=== PATIENT | male | born 1940 | race Caucasian/White ===

== ENCOUNTER 2016-06-28 23:00 | Inpatient (IN) | payer OTHER ==
[~2016-06-28] VITALS: Ht 172.7 cm; Wt 92.8 kg
[2016-06-28] MEDS ORDERED: SODIUM CHLORIDE 0.9% 1000ML 250 ML IV STA (23:38)
[2016-06-28] MEDS ORDERED: SODIUM CHLORIDE 0.9% 1000ML 1,000 ML IV STA (23:38)
--- NOTE | 2016-06-28 23:43 | EMERGENCY ROOM VISIT NOTE ---
History Report prepared by Gina: Bradley Maldonado Under the Supervision of: Dr. Will King M.D. First contact with patient: 23:17 Chief Complaint: CARDIAC ASSESSMENT Stated Complaint: HTN, SEVERE HEADACHE, LEG WEAKNESS Nursing Triage Summary: pt drove 8+hours from [facility] today. when pt arrived to [facility] at 1999. he became very flushed. pt layed down and checked his bp and it was elevated. pt also c/o chest pain, SOB and nausea. hx afib with ablasion 10yrs ago that resolved afib. pt hx anxiety and takes 2-3 anxiety meds daily. hx "swollen legs from fluid". recently dx with HTN and started on 2 BP meds. reports he has been taking them as prescribed. pt states his CP "pressure felt like my throat was closing up and my heart was beating irregularly". pt took dose of Hydrachlorathiazide prior to coming to ED. History of Present Illness The patient is a 76 year old male who presents to the Emergency Room for a cardiac assessment. The patient just drove to [place] from [place] for eight and a half hours. Two and a half hours ago, the patient was eating dinner with his family. He bent over to pet his cats, and when he stood back up he had a very erythematous face. He then began to have chest pain, shortness of breath, nausea, and a headache. He also feels very bloated and is slightly constipated. The patient denies any vomiting or rashes. He states that he feels better than he did when he came in secondary to lying down. He has a history of hypertension, resolved A Fib, and anxiety. The patient has not missed any of his medications. He took an extra half of one of his medications when the symptoms began. He denies any speaking difficulty or vision problems. Source of History: patient, family, spouse/significant other Onset: 2 and a half hours ago Position: other (Heart) Symptom Intensity: moderate Quality: other (Blood Pressure) Timing: waxes/wanes Modifying Factors (Relieving): rest Associated Symptoms: + SOB, + chest pain, + headache, + nausea, No vomiting Note: He denies any vision problems or speaking difficulty. He feels very bloated and is having some mild constipation. Review of Systems See HPI for pertinent positives & negatives. A total of 10 systems reviewed and were otherwise negative. Past Medical & Surgical Medical Problems: (1) A-fib (2) Anxiety (3) Chest pain (4) Hypertension (5) Hypertension Old medical records were attempted to be reviewed but there are no old records at this hospital. Nurse's notes were reviewed and I agree with. Family History Diabetes mellitus FHx: cancer Hypertension Social History Smoking Status: Former Smoker Smokeless Tobacco Use: No Alcohol Use: none Drug Use: none Marital Status: Housing Status: lives with family Occupation Status: retired Current/Historical Medications Scheduled Amlodipine (Norvasc), 7.5 MG PO DAILY Atenolol (Tenormin), 100 MG PO DAILY Cholecalciferol (Vitamin D3), 1,000 UNIT PO DAILY Gabapentin (Neurontin), 300 MG PO TID Hydrochlorothiazide (Hydrochlorothiazide), 12.5 MG PO DAILY Losartan Potassium (Cozaar), 25 MG PO HS Meloxicam (Mobic), 15 MG PO DAILY Scheduled PRN Alprazolam (Alprazolam), 0.25 MG PO TID PRN for Anxiety Allergies Coded Allergies: Latex (Verified Allergy, Unknown, skin irritation, 06/28/16) Physical Exam Vital Signs Date Time Temp Pulse Resp B/P Pulse Ox O2 Delivery O2 Flow Rate FiO2 06/29/16 03:07 52 06/29/16 02:35 49 16 131/63 94 Room Air 06/29/16 01:47 50 16 150/74 93 Room Air 06/29/16 00:45 50 14 146/79 95 Room Air 06/28/16 23:18 55 17 176/85 99 Room Air 06/28/16 23:11 57 06/28/16 23:08 99 Room Air 06/28/16 23:08 99 Room Air 06/28/16 23:02 36.3 67 20 200/92 92 Room Air Physical Exam Final General: Non ill appearing older male. Awake, alert, and oriented x3. Well developed well nourished in no acute distress, breathing comfortably on room air. Normal speech. Answers questions appropriately. HEENT: Normal cephalic atraumatic. Pupils are equal round and reactive to light. Extraocular movements are intact. Oropharynx is pink with moist mucous membranes. No swelling of the mouth lips or tongue. Neck: Supple with a midline trachea. No meningeal signs or stiffness, no JVD or bruits. No Stridor. Chest: Clear to auscultation bilaterally. No wheezes or rhonchi. No increased work of breathing. Heart: regular rate and rhythm. Abdomen: Soft nontender, nondistended without rebound guarding or rigidity. Extremities: No cyanosis clubbing or edema. No calf tenderness or assymetry Spine/Back. Non tender to palpation. No CVA tenderness Skin: Face is slightly flushed. No hives. Neurologic exam: Cranial nerves two through 12 are intact. Motor and sensation are intact and symmetrical throughout. Normal finger to nose. No tremor. Medical Decision & Procedures ER Provider Diagnostic Interpretation: Radiology results as stated below per my review and radiologist interpretation: CT HEAD: No intracranial hemorrhage or mass effect. Radiologist: Joey Carl M.D Chest x-ray per my interpretation reveals no pneumothorax, failure, or infiltrate. Laboratory Results 06/28/16 23:10 Red Blood Count 5.37, Mean Corpuscular Volume 84.5, Mean Corpuscular Hemoglobin 29.8, Mean Corpuscular Hemoglobin Concent 35.2, Mean Platelet Volume 10.4, Neutrophils (%) (Auto) 66.4, Lymphocytes (%) (Auto) 19.0, Monocytes (%) (Auto) 10.2, Eosinophils (%) (Auto) 3.2, Basophils (%) (Auto) 0.8, Neutrophils # (Auto ) 6.93, Lymphocytes # (Auto) 1.98, Monocytes # (Auto) 1.06, Eosinophils # (Auto ) 0.33, Basophils # (Auto) 0.08 06/28/16 23:10 Test 06/28/16 23:10 06/28/16 23:47 06/28/16 23:55 White Blood Count 10.42 K/uL (4.8-10.8) Red Blood Count 5.37 M/uL (4.7-6.1) Hemoglobin 16.0 g/dL (14.0-18.0) Hematocrit 45.4 % (42-52) Mean Corpuscular Volume 84.5 fL (80-100) Mean Corpuscular Hemoglobin 29.8 pg (25-34) Mean Corpuscular Hemoglobin Concent 35.2 g/dl (32-36) Platelet Count 172 K/uL (130-400) Mean Platelet Volume 10.4 fL (7.4-10.4) Neutrophils (%) (Auto) 66.4 % Lymphocytes (%) (Auto) 19.0 % Monocytes (%) (Auto) 10.2 % Eosinophils (%) (Auto) 3.2 % Basophils (%) (Auto) 0.8 % Neutrophils # (Auto) 6.93 K/uL (1.4-6.5) Lymphocytes # (Auto) 1.98 K/uL (1.2-3.4) Monocytes # (Auto) 1.06 K/uL (0.11-0.59) Eosinophils # (Auto) 0.33 K/uL (0-0.5) Basophils # (Auto) 0.08 K/uL (0-0.2) RDW Standard Deviation 38.9 fL (36.4-46.3) RDW Coefficient of Variation 12.8 % (11.5-14.5) Immature Granulocyte % (Auto) 0.4 % Immature Granulocyte # (Auto) 0.04 K/uL (0.00-0.02) Prothrombin Time 10.7 SECONDS (9.0-12.0) Prothromb Time International Ratio 1.0 (0.9-1.1) Activated Partial Thromboplast Time 30.3 SECONDS (21.0-31.0) Partial Thromboplastin Ratio 1.2 Anion Gap 6.0 mmol/L (3-11) Est Creatinine Clear Calc Drug Dose 45.6 ml/min Estimated GFR () 51.3 Estimated GFR (Non- 44.3 BUN/Creatinine Ratio 15.3 (10-20) Calcium Level 9.1 mg/dl (8.5-10.1) Total Bilirubin 0.5 mg/dl (0.2-1) Direct Bilirubin 0.1 mg/dl (0-0.2) Aspartate Amino Transf (AST/SGOT) 26 U/L (15-37) Alanine Aminotransferase (ALT/SGPT) 41 U/L (12-78) Alkaline Phosphatase 108 U/L (45-117) Total Creatine Kinase 163 U/L (39-308) Creatine Kinase MB 4.8 ng/ml (0.5-3.6) Creatine Kinase MB Ratio 2.9 (0-3.0) Total Protein 7.7 gm/dl (6.4-8.2) Albumin 4.0 gm/dl (3.4-5.0) Lipase 312 U/L (73-393) Bedside Troponin I 0.000 ng/ml (0-0.045) Urine Color YELLOW Urine Appearance CLEAR (CLEAR) Urine pH 8.5 (4.5-7.5) Urine Specific [place] 1.010 (1.000-1.030) Urine Protein NEG (NEG) Urine Glucose (UA) NEG (NEG) Urine Ketones NEG (NEG) Urine Occult Blood NEG (NEG) Urine Nitrite NEG (NEG) Urine Bilirubin NEG (NEG) Urine Urobilinogen NEG (NEG) Urine Leukocyte Esterase NEG (NEG) Laboratory studies as stated above per my review. Medications Administered Medications (Trade) Dose Ordered Sig/Tirso Route Start Time Stop Time Status Last Admin Dose Admin Sodium Chloride 250 ml @ 999 mls/hr Q16M STAT IV 06/28/16 23:38 06/28/16 23:53 DC 06/29/16 00:45 999 MLS/HR Sodium Chloride (Nss 1000ml) 1,000 ml @ 100 mls/hr Q10H STAT IV 06/28/16 23:38 06/29/16 04:11 DC 06/29/16 00:45 100 MLS/HR ECG Indication: chest pain Rate (beats per minute): 57 Rhythm: sinus bradycardia Findings: no acute ischemic change, no ectopy Comparison ECG Date: no prior available ED Course 2317: Past medical records reviewed. The patient was evaluated in room B6, and a complete history and physical examination were performed. 2338: Sodium Chloride 1000 ml @ 100 mls/hr IV, Sodium Chloride 250 ml @ 999 mls/ hr IV 0005: The patient seems comfortable. He is going to CT. 0058: The patient is still resting comfortably. His systolic blood pressure has decreased to 146. 0322: Upon reevaluation, the patient is resting. I discussed the results and treatment plan with the patient. He verbalized agreement of the treatment plan. The patient will be evaluated by Dr. Gutiérrez - [facility], for further management. His systolic blood pressure is 131. Medical Decision Differentials include hypertensive urgency, acute coronary syndrome, CVA, infection, and electrolyte or metabolic abnormality. This patient comes in as described above He had chest pain and high blood pressure as well as a headache. His blood pressure did come down without treatment in the ER. He did take an extra half dose of his calcium channel jesi prior to arrival. His EKG does not suggest acute coronary syndrome or arrhythmia. He has a normal neurologic exam .CAT scan his has unremarkable .chest x-ray does not suggest congestive heart failure, pneumonia, or pneumothorax. He has no acute electrolyte or metabolic abnormalities. He was reassessed frequently and is feeling better. Given the fact, he had chest pain shortness breath and high blood pressure. I do think he needs to be observed in the hospital to rule out acute cardiac event. I did consult the hospitalist. This on the ER will admit him for these measures. Consults Time Called: [phone] Consulting Physician: Dr. Gutiérrez - [facility] Returned Call: [phone] They will be evaluating the patient for further management. Impression Primary Impression: Precordial chest pain Additional Impressions: HTN (hypertension) Headache Scribe Attestation The scribe's documentation has been prepared under my direction and personally reviewed by me in its entirety. I confirm that the note above accurately reflects all work, treatment, procedures, and medical decision making performed by me. Departure Information Dispostion Being Evaluated By Hospitalist Referrals No Doctor, Assigned (PCP) Patient Instructions My [facility] Problem Qualifiers
[2016-06-29 00:22] LABS: URINE APPEARANCE CLEAR (CLEAR); URINE BILIRUBIN NEG (NEG); URINE COLOR YELLOW; URINE NITRITE NEG (NEG); URINE PH 8.5 (4.5-7.5); UROBILINOGEN NEG (NEG)
[2016-06-29] MEDS ORDERED: AMLO-110 PO (00:24)
[2016-06-29] MEDS ORDERED: MELO15TA4 PO (00:24)
[2016-06-29] MEDS ORDERED: LOSA25TA18 PO (00:24)
[2016-06-29] MEDS ORDERED: CHOL1000 PO (00:25)
[2016-06-29] MEDS ORDERED: XNX25X PO (00:27)
[2016-06-29] MEDS ORDERED: HYDR12.55 PO (00:27)
[2016-06-29] MEDS ORDERED: GABA-113 PO (00:27)
[2016-06-29] MEDS ORDERED: ATEN-175 PO (00:27)
[2016-06-29 00:33] LABS: REVIEW REQ? NO
[2016-06-29 00:34] LABS: MANUAL MICROSCOPIC REQUIRED? NO
[2016-06-29 01:02] LABS: BASO % 0.8 %; BASO ABS # 0.08 K/uL (0-0.2); COMPLETE YES; EOS % 3.2 %; HEMATOCRIT 45.4 % (42-52); IG% 0.4 %; LYMPH ABS # 1.98 K/uL (1.2-3.4); MEAN CELL VOLUME 84.5 fL (80-100); MEAN CORPUSCULAR HEMOGLOBIN 29.8 pg (25-34); MEAN CORPUSCULAR HGB CONC 35.2 g/dl (32-36); MEAN PLATELET VOLUME 10.4 fL (7.4-10.4); MONO % 10.2 %; NEUT % 66.4 %; PLATELET COUNT 172 K/uL (130-400); RED BLOOD COUNT 5.37 M/uL (4.7-6.1); WHITE BLOOD COUNT 10.42 K/uL (4.8-10.8)
[2016-06-29 01:03] LABS: PARTIAL THROMBOPLASTIN RATIO 1.2; PROTHROMBIN TIME (PATIENT) 10.7 SECONDS (9.0-12.0)
[2016-06-29 01:06] LABS: BUN/CREATININE RATIO 15.3 (10-20); CALCIUM 9.1 mg/dl (8.5-10.1); CREATININE 1.5 mg/dl (0.60-1.40); POTASSIUM 3.9 mmol/L (3.5-5.1)
[2016-06-29 01:11] LABS: CKMB/CK RATIO 2.9 (0-3.0)
[2016-06-29] MEDS ORDERED: MAGNESIUM HYDROXIDE SUSP 30 ML UDC PO PRN (03:30)
[2016-06-29] MEDS ORDERED: MoRPHine SULFATE 2 MG/ML CARP IV PRN (03:30)
[2016-06-29] MEDS ORDERED: ZOLPIDEM TARTRATE 5 MG TAB PO PRN (03:30)
[2016-06-29] MEDS ORDERED: ACETAMINOPHEN 325 MG TAB PO PRN (03:30)
[2016-06-29] MEDS ORDERED: ALUMINUM/MAGNESIUM/SIMETH (MAALOX MAX) 30 ML UDC PO PRN (03:30)
[2016-06-29] MEDS ORDERED: NITROGLYCERIN 0.4 MG SL PER TAB CHARGE SL PRN (03:30)
[2016-06-29] MEDS ORDERED: ONDANSETRON INJ 2 MG/ML 2 ML VIAL IV PRN (03:30)
[2016-06-29] MEDS ORDERED: ALPRAZOLAM 0.25 MG TAB PO PRN (03:30)
[2016-06-29] MEDS ORDERED: POLYETHYLENE (MIRALAX) 17 GM PACK PO PRN (03:30)
--- NOTE | 2016-06-29 03:32 | History and Physical ---
History & Physical Date & Time of Service: Jun 29, 2016 at 03:25 Chief Complaint: Htn, Severe Headache, Leg Weakness Primary Care Physician: No Doctor, Assigned History of Present Illness Source: patient, spouse Mr Miller is a 76 yo M from [place], [place], who was visiting his daughter in [place] with his . He was downstairs last night playing with his daughters cats and started to feel winded and shrot of breath. He felt his BP may be up, and his face was flushed and red. He checked his BP and it was 190 systolic. he called his PCP who said to take another 1/2 tablet of amlodipine. He did not feel any better so came to the ED. He also had a left sided chest discomfort. This was sharp, nonradiating, and did no tget better with sitting up or laying down. He denied nausea or vomiting. He has a history of cardiac ablation about 10 years ago for atrial fibrillation. He has a history of HTN and is on 4 different medications for this (losartan 25mg, amlodipine 7.5mg daily, atenolol 100mg BID, and HCTZ 25mg). He reports his BP has always been difficult to control. Past Medical/Surgical History Medical Problems: (1) A-fib Status: Resolved (2) Anxiety Status: Chronic (3) Hypertension Status: Chronic Family History Diabetes mellitus FHx: cancer Hypertension Social History Smoking Status: Former Smoker (Stopped at age 23) Smokeless Tobacco Use: No Drug Use: none Marital Status: Occupational Status: retired Allergies Coded Allergies: Latex (Verified Allergy, Unknown, skin irritation, 06/28/16) Home Medications Scheduled Amlodipine (Norvasc), 7.5 MG PO DAILY Atenolol (Tenormin), 100 MG PO DAILY Cholecalciferol (Vitamin D3), 1,000 UNIT PO DAILY Gabapentin (Neurontin), 300 MG PO TID Hydrochlorothiazide (Hydrochlorothiazide), 12.5 MG PO DAILY Losartan Potassium (Cozaar), 25 MG PO HS Meloxicam (Mobic), 15 MG PO DAILY Scheduled PRN Alprazolam (Alprazolam), 0.25 MG PO TID PRN for Anxiety Review of Systems See HPI for pertinent positives & negatives. A total of 10 systems reviewed and were otherwise negative. Physical Exam Vital Signs Date Time Temp Pulse Resp B/P Pulse Ox O2 Delivery O2 Flow Rate FiO2 06/29/16 03:07 52 06/29/16 02:35 49 16 131/63 94 Room Air 06/29/16 01:47 50 16 150/74 93 Room Air 06/29/16 00:45 50 14 146/79 95 Room Air 06/28/16 23:18 55 17 176/85 99 Room Air 06/28/16 23:11 57 06/28/16 23:08 99 Room Air 06/28/16 23:08 99 Room Air 06/28/16 23:02 36.3 67 20 200/92 92 Room Air General Appearance: WD/WN, no apparent distress, + obese Head: normocephalic, atraumatic Eyes: normal inspection, PERRL ENT: TMs normal Neck: supple, no JVD Respiratory/Chest: lungs clear, normal breath sounds, no respiratory distress Cardiovascular: regular rate, rhythm, no murmur, normal peripheral pulses Abdomen/GI: normal bowel sounds, non tender, soft Extremities/Musculoskelatal: no calf tenderness, no pedal edema Neurologic/Psych: alert, normal reflexes, oriented x 3, + pertinent finding ( anxious, rapid speech) Skin: no rash Lymphatic: no adenopathy Diagnostics Laboratory Results Results Past 24 Hours Test 06/28/16 23:10 06/28/16 23:47 06/28/16 23:55 06/29/16 03:18 Range/Units White Blood Count 10.42 4.8-10.8 K/uL Red Blood Count 5.37 4.7-6.1 M/uL Hemoglobin 16.0 14.0-18.0 g/dL Hematocrit 45.4 42-52 % Mean Corpuscular Volume 84.5 80-100 fL Mean Corpuscular Hemoglobin 29.8 25-34 pg Mean Corpuscular Hemoglobin Concent 35.2 32-36 g/dl Platelet Count 172 130-400 K/uL Mean Platelet Volume 10.4 7.4-10.4 fL Neutrophils (%) (Auto) 66.4 % Lymphocytes (%) (Auto) 19.0 % Monocytes (%) (Auto) 10.2 % Eosinophils (%) (Auto) 3.2 % Basophils (%) (Auto) 0.8 % Neutrophils # (Auto) 6.93 1.4-6.5 K/uL Lymphocytes # (Auto) 1.98 1.2-3.4 K/uL Monocytes # (Auto) 1.06 0.11-0.59 K/uL Eosinophils # (Auto) 0.33 0-0.5 K/uL Basophils # (Auto) 0.08 0-0.2 K/uL RDW Standard Deviation 38.9 36.4-46.3 fL RDW Coefficient of Variation 12.8 11.5-14.5 % Immature Granulocyte % (Auto) 0.4 % Immature Granulocyte # (Auto) 0.04 0.00-0.02 K/uL Prothrombin Time 10.7 9.0-12.0 SECONDS Prothromb Time International Ratio 1.0 0.9-1.1 Activated Partial Thromboplast Time 30.3 21.0-31.0 SECONDS Partial Thromboplastin Ratio 1.2 Sodium Level 142 136-145 mmol/L Potassium Level 3.9 3.5-5.1 mmol/L Chloride Level 104 98-107 mmol/L Carbon Dioxide Level 32 21-32 mmol/L Anion Gap 6.0 3-11 mmol/L Blood Urea Nitrogen 23 7-18 mg/dl Creatinine 1.50 0.60-1.40 mg/dl Est Creatinine Clear Calc Drug Dose 45.6 ml/min Estimated GFR () 51.3 Estimated GFR (Non- 44.3 BUN/Creatinine Ratio 15.3 10-20 Random Glucose 100 70-99 mg/dl Calcium Level 9.1 8.5-10.1 mg/dl Total Bilirubin 0.5 0.2-1 mg/dl Direct Bilirubin 0.1 0-0.2 mg/dl Aspartate Amino Transf (AST/SGOT) 26 15-37 U/L Alanine Aminotransferase (ALT/SGPT) 41 12-78 U/L Alkaline Phosphatase 108 45-117 U/L Total Creatine Kinase 163 39-308 U/L Creatine Kinase MB 4.8 0.5-3.6 ng/ml Creatine Kinase MB Ratio 2.9 0-3.0 Total Protein 7.7 6.4-8.2 gm/dl Albumin 4.0 3.4-5.0 gm/dl Lipase 312 73-393 U/L Bedside Troponin I 0.000 0-0.045 ng/ml Urine Color YELLOW Urine Appearance CLEAR CLEAR Urine pH 8.5 4.5-7.5 Urine Specific [place] 1.010 1.000-1.030 Urine Protein NEG NEG Urine Glucose (UA) NEG NEG Urine Ketones NEG NEG Urine Occult Blood NEG NEG Urine Nitrite NEG NEG Urine Bilirubin NEG NEG Urine Urobilinogen NEG NEG Urine Leukocyte Esterase NEG NEG Microbiology Results 06/28/16 Urine Culture, Received Pending CXR normal Normal EKG, No prior EKG available Impression Assessment and Plan 76 yo M with previous history of atrial fibrillation and HTN presents with chest pain, lightheadedness and diaphoresis. Differential includes ACS, GERD, Hypertensive urgency, or panic attack. Chest discomfort - Start aspirin 81mg - Continue beta jesi - No indication for heparin at this time - Pain intermittent but morphine and nitroglycerin SL for pain - Monitor on telemetry - Trend cardiac enzymes - Echocardiogram - Assess for risk factors: Lipids, HbA1c Hypertension - Continue home medications - Cardiology consult - Obtain recrods from PCP Anxiety - Continue Xanax PRN TID Restless leg - Continue gabapentin Level of Care Telemetry Resuscitation Status FULL RESUSCITATION VTE Prophylaxis VTE Risk Assessment Done? Y/N: Yes Risk Level: Moderate Resident Tracking Resident Involvement: Resident Care Provided Care Provided: [facility] Assessment and Plan Attending Addendum: I have physically seen and examined this patient, have directed their medical care, have supervised the medical residents activities, and agree with the H&P as noted above, with the following changes: The patient is awake, well-developed and adequately nourished, alert and oriented 3, normocephalic and atraumatic, rani complexion, lying in Bed and in no acute distress. HEENT--PERRL, EOMI, mucous membranes and oropharynx dry. Neck--supple, no JVD or bruits, thyroid normal, trachea midline, no adenopathy. Heart--normal S1 and S2, no extra beats, no murmurs, rubs or gallops. Lungs--clear bilaterally with good air movement, no respiratory distress, no accessory muscle use. Abdomen--normal bowel sounds and soft, nontender and nondistended, no hernias or masses, no organomegaly. Extremities--no cyanosis, clubbing or edema. There are good distal pulses b/l. Dermatologic--normal skin turgor, normal color, warm and dry, no abnormal lymph nodes, no rash. Neurologic--cranial nerves II through XII grossly intact, motor and sensory examination normal. Rheumatologic--normal range of motion, nontender, muscles and joints. Psychiatric--normal affect. Assessment and Plan: Atrial fibrillation status post ablation/hypertension/elevated blood pressure prior to arrival--the patient spend a lot of time with increased physical activity the day before leaving [place] by packing, he did not sleep well last night, and his legs felt somewhat tired when he left his home this morning. He does sleep in a car part of the way. Tonight while visiting his daughter [place], 1 hour after eating heavy salty meal including pulled pork, he leaned down to play with an animal, and when he got back up felt flushed, had a generalized headache, and checked his blood pressure and it was elevated. He typically is very little salt in his diet. He'll be admitted to the telemetry unit, for serial cardiac enzymes, cardiac rhythm monitoring and a 2-D echocardiogram with Dopplers. I suspect his symptoms are related to physical stress of the trip and then the unintended heavy salt intake. We will continue amlodipine 7.5 mg by mouth daily, atenolol 100 mg by mouth daily, HCTZ 12.5 mg by mouth daily, and losartan potassium 25 mg by mouth at bedtime. Would avoid NSAIDs including his usual meloxicam 15 mg by mouth daily at this time. He is also advised to go back to his sodium restricted diet as before. Chronic venous insufficiency/probable restless leg syndrome--continue his usual gabapentin 3 mg by mouth 3 times a day. Anxiety--continue alprazolam 0.25 mg by mouth 3 times a day when necessary
--- NOTE | 2016-06-29 06:51 | DIAGNOSTIC IMAGING REPORT ---
CHEST ONE VIEW PORTABLE CLINICAL HISTORY: CHEST PAIN dyspnea COMPARISON STUDY: No previous studies for comparison. FINDINGS: The bones soft tissues and hemidiaphragms are normal. The cardiomediastinal silhouette is normal. The lungs are clear. The pulmonary vasculature is normal. IMPRESSION: Negative chest. Electronically signed by: Sawyer Stock M.D. 06/29/2016 6:50 AM Dictated Date/Time: 06/29/2016 6:48 AM
--- NOTE | 2016-06-29 07:09 | DIAGNOSTIC IMAGING REPORT ---
CT SCAN OF THE BRAIN WITHOUT IV CONTRAST CLINICAL HISTORY: Headache. COMPARISON STUDY: No priors. TECHNIQUE: Unenhanced axial CT scan of the brain is performed from the vertex to the skull base. CT DOSE: 569.73 mGy.cm FINDINGS: Brain parenchyma: There are mild age-related involutional changes. There is no hemorrhage, mass effect, or evidence of acute territorial ischemia by CT criteria. Elizabeth-white matter is preserved. No extra-axial fluid collection is seen. Ventricles, sulci, cisterns: Prominent secondary to involutional change. Intracranial vasculature: There is mild atherosclerotic calcification of the cavernous carotid arteries. Calvarium: Unremarkable. Sinuses and mastoids: The visualized paranasal sinuses are clear. The mastoid air cells are well pneumatized. Orbits: The bony orbits are grossly intact. There are bilateral ocular lens implants. IMPRESSION: There is no hemorrhage, mass effect, or evidence of acute territorial ischemia by CT criteria. Electronically signed by: Bert Phillips M.D. 06/29/2016 7:08 AM Dictated Date/Time: 06/29/2016 7:06 AM
[2016-06-29 07:12] LABS: ESTIMATED AVERAGE GLUCOSE 108 mg/dl; HA1C FLAG Normal (Normal)
[2016-06-29 08:00] VITALS: BP 168/82; PULSE 51; TEMP 36.5; O2SAT 95; Ht 172.7 cm; Wt 92.8 kg
[2016-06-29 08:02] VITALS: O2SAT 95
[2016-06-29 08:54] LABS: HEMATOCRIT 42.4 % (42-52); MEAN CELL VOLUME 85.5 fL (80-100); MEAN CORPUSCULAR HEMOGLOBIN 30.4 pg (25-34); MEAN CORPUSCULAR HGB CONC 35.6 g/dl (32-36); MEAN PLATELET VOLUME 10.1 fL (7.4-10.4); PLATELET COUNT 140 K/uL (130-400); RED BLOOD COUNT 4.96 M/uL (4.7-6.1); WHITE BLOOD COUNT 8.71 K/uL (4.8-10.8)
[2016-06-29] MEDS ORDERED: AMLODIPINE BESYLATE 5 MG TAB PO SCH (09:00)
[2016-06-29] MEDS ORDERED: ASPIRIN 81 MG ECTAB PO SCH (09:00)
[2016-06-29] MEDS ORDERED: HEPARIN SOD 5000 UNIT/0.5 ML CARP SQ SCH (09:00)
[2016-06-29] MEDS ORDERED: MELOXICAM 7.5 MG TAB PO SCH (09:00)
[2016-06-29] MEDS ORDERED: HYDROCHLOROTHIAZIDE 25 MG TAB PO SCH (09:00)
[2016-06-29] MEDS: GABAPENTIN 300 MG CAP PO SCH ×2 (09:11→14:04)
[2016-06-29 09:27] LABS: CKMB/CK RATIO 3.1 (0-3.0)
[2016-06-29 09:30] LABS: BLOOD UREA NITROGEN 23 mg/dl (7-18); BUN/CREATININE RATIO 22.5 (10-20); CALCIUM 8.5 mg/dl (8.5-10.1); CARBON DIOXIDE 28 mmol/L (21-32); CHLORIDE 107 mmol/L (98-107); GLUCOSE 94 mg/dl (70-99); POTASSIUM 3.5 mmol/L (3.5-5.1); SODIUM 141 mmol/L (136-145)
--- NOTE | 2016-06-29 10:00 | CARDIOLOGY CONSULTATION ---
DATE OF CONSULTATION: 06/29/2016 DATE OF CONSULTATION: 06/29/2016. PERTINENT HISTORY: Mr. Miller is a 76-year-old white male visiting this area from [place] who developed shortness of breath and elevated blood pressure and presented to the Emergency Room for further care. The patient claims he was in his usual state of health until 24 hours prior to admission. While packing the car to come visit his daughter in [place], the patient was quite vigorous in his physical activities. He apparently did not sleep well the evening prior to presentation. On arrival to [place] the patient ate a heavily salted meal. Several hours later, while playing with a cat, he began to feel flushed and shortness of breath. He checked his blood pressure and noted a systolic reading to be 190. He then presented to the Emergency Room for further care. Of note, he did note some substernal chest pressure. There was no nausea, vomiting, or diaphoresis. On arrival here, patient's blood pressure was 200/90. He was given intravenous hydration and improved. Systolic blood pressure had decreased to 140. The patient's cardiac history began approximately 10 years ago. He presented to a hospital in [place] in atrial fibrillation with rapid ventricular response. He eventually underwent radiofrequency ablation. He has had no further atrial fibrillation since that time. Has not been maintained on oral anticoagulation. The patient had a full cardiac evaluation approximately 5 years ago which included a stress test. Fortunately that stress test was negative. The remainder of his evaluation unremarkable. PAST MEDICAL HISTORY: 1. Hypertension. 2. Paroxysmal atrial fibrillation. 3. Status post radiofrequency ablation -- 2006. 4. Anxiety. 5. Lumbar fusion. 6. TURP -- 2016. MEDICATIONS: 1. Losartan 25 mg daily. 2. Amlodipine 7.5 mg. 3. Atenolol 100 mg per day. 4. Hydrochlorothiazide 12.5 mg daily. 5. Mobic 15 mg daily. 6. Aspirin 81 mg per day. 7. Heparin 5000 units subQ q. 12 hours. ALLERGIES: LATEX. SOCIAL HISTORY: The patient is retired and lives with his in the [place], [place] area. Visiting his daughter in [place] currently. Stopped tobacco use 24 years ago. Rare alcohol use. FAMILY HISTORY: No early coronary artery disease. REVIEW OF SYSTEMS: A 10-point review of systems was negative except for that described above. PHYSICAL EXAMINATION: GENERAL: This is a well-developed, well-nourished white male in no acute distress. VITAL SIGNS: Blood pressure is 168/80 with a regular pulse of 53. Respiratory rate is 20. The patient is afebrile at 36.5 degrees Celsius. Saturations 95% on room air. HEAD, EYES, EARS, NOSE, AND THROAT EXAMINATION: Negative. NECK: Supple. Full carotid upstrokes. There are no carotid bruits. Jugular venous pressure is flat at 90 degrees. There is no thyromegaly. CARDIOVASCULAR EXAMINATION: Reveals a regular rhythm with normal S1 and S2. Heart sounds are distant. No obvious murmurs. LUNGS: Clear without rales, rhonchi, or wheezes. ABDOMEN: Soft and nontender without bruits. EXTREMITIES: Reveal intact radial artery and posterior tibial pulses bilaterally. There is no peripheral edema. LABORATORY DATA: CBC notes hemoglobin 16.0, hematocrit 45.4, white count 10.4, platelet count 172,000. Electrolytes note a sodium of 142, potassium 3.9, chloride 104, bicarbonate 32, BUN 23, creatinine 1.5, glucose 100. Point of care troponin is 0. CK is 163 with an MB fraction of 4.8. EKG notes sinus bradycardia without abnormalities. Chest x-ray shows no acute disease. CT scan head is negative. IMPRESSION: Mr. Miller was admitted with elevated blood pressure and complaints of shortness of breath and chest pressure. EKG shows no acute changes and his cardiac enzymes are negative thus far. Agree with the addition of aspirin to his medical regimen. A stress echocardiogram can be performed if his second set of cardiac markers are negative. PLAN: 1. Agree with the addition of aspirin. 2. Could increase losartan to 50 mg daily. 3. Could increase amlodipine to 10 mg daily. 4. Stress echocardiogram if second set of cardiac enzymes negative.
[2016-06-29] MEDS ORDERED: DOBUTamine HCL 12.5 MG/ML 20 ML VIAL ONE (10:44)
[2016-06-29] MEDS ORDERED: ATROPINE SULFATE 0.1 MG/ML 5ML SYR ONE (10:44)
[2016-06-29] MEDS ORDERED: METOPROLOL TARTRATE 1 MG/ML VIAL ONE (10:44)
[2016-06-29 12:00] VITALS: BP 147/86; PULSE 69; TEMP 36.5; O2SAT 94
[2016-06-29] MEDS ORDERED: PERFLUTREN LIPID MICROSPHERE (DEFINITY) IV ONE (12:02)
[2016-06-29] MEDS ORDERED: NRV5 PO (13:48)
[2016-06-29] MEDS ORDERED: CZR50 PO (13:48)
--- NOTE | 2016-06-29 13:57 | Discharge Instructions ---
Discharge Instructions Date of Service Jun 29, 2016. Admission Reason for Admission: Chest Pain, Hypertension Discharge Discharge Diagnosis / Problem: hypertension Discharge Goals Goal(s): Diagnostic testing Activity Recommendations Activity Limitations: as noted below Exercise/Sports Limitations: gradually increase as tolerated . Instructions / Follow-Up Instructions / Follow-Up You were admitted to the hospital because of chest pain and elevated blood pressure. While you were in the hospital we monitored your blood pressure and completed some tests to make sure that you did not experience a heart attack/ have any damage to your heart. Your blood test, called troponin, which will be elevated with damage to the heart was negative on multiple occasions. The stress test did not indicate any sign of damage to your heart or areas that may not be getting enough blood flow. We did have cardiology see you and they had some recommendations for your blood pressure medications. 1. increase amlodipine to 10 mg daily 2. increase losartan to 50 mg daily a script will be provided please follow up with your PCP back home when you return Current Hospital Diet Patient's current hospital diet: AHA Diet (Heart Healthy) Discharge Diet Recommended Diet: AHA Diet (Heart Healthy), Low Sodium Diet (2gm Na) Pending Studies Studies pending at discharge: no Laboratory Results Hemoglobin A1c Test 06/28/16 23:55 Range/Units Estimated Average Glucose 108 mg/dl Hemoglobin A1c 5.4 4.5-5.6 % Medical Emergencies . Who to Call and When: Medical Emergencies: If at any time you feel your situation is an emergency, please call 911 immediately. . Non-Emergent Contact Non-Emergency issues call your: Primary Care Provider . . "Provider Documentation" section prepared by Cristy Brary. VTE Core Measure Inpt VTE Proph given/why not?: Unfractionated heparin SQ
[2016-06-29 14:09] VITALS: BP 134/82; PULSE 55; TEMP 36.4; O2SAT 93
[2016-06-29 15:07] VITALS: BP 147/86; PULSE 69; TEMP 36.5; O2SAT 94
--- NOTE | 2016-06-29 16:32 | Discharge Summary ---
Discharge Summary Date of Service Jun 29, 2016. (Cristy Melgar MD) Discharge Summary Admission Date: Jun 29, 2016 at 03:22 Discharge Date: Jun 29, 2016 Discharge Disposition: Home Principal Diagnosis: hypertensive urgency (Cristy Melgar MD) Medication Reconciliation New Medications: Amlodipine Besylate (Amlodipine Besylate) 5 Mg Tab 10 MG PO DAILY for 30 Days, #60 TAB Losartan Potassium (Losartan Potassium) 50 Mg Tab 50 MG PO HS for 30 Days, #30 TAB Continued Medications: Alprazolam (Alprazolam) 0.25 Mg Tab 0.25 MG PO TID PRN for Anxiety Atenolol (Tenormin) 100 Mg Tab 100 MG PO DAILY, TAB Cholecalciferol (Vitamin D3) 1,000 Unit Tab 1000 UNIT PO DAILY, 3 Refills Gabapentin (Neurontin) 300 Mg Cap 300 MG PO TID, CAP Hydrochlorothiazide (Hydrochlorothiazide) 12.5 Mg Tab 12.5 MG PO DAILY, 3 Refills Meloxicam (Mobic) 15 Mg Tab 15 MG PO DAILY, TAB Discontinued Medications: Amlodipine (Norvasc) 5 Mg Tab 7.5 MG PO DAILY 1 & 1/2 TABLET DOSE Losartan Potassium (Cozaar) 25 Mg Tab 25 MG PO HS, TAB Discharge Exam Patient feeling well on d/c questions and concerns discussed with patient and family, agreeable to d/c Review of Systems: Constitutional: No fever Eyes: No worsening of vision ENT: No hearing loss Respiratory: No cough, No dyspnea at rest, No dyspnea on exertion, No shortness of breath, No sputum, No wheezing Cardiovascular: No chest pain Abdomen: No constipation, No diarrhea, No nausea, No pain, No vomiting Musculoskeletal: No joint pain, No muscle pain Genitourinary - Male: No dysuria, No hematuria Neurologic: + balance problems, + weakness, No numbness/tingling Psychiatric: No depression symptoms Endocrine: + fatigue Integumentary: No rash Physical Exam: General Appearance: no apparent distress Eyes: normal inspection ENT: normal ENT inspection Neck: supple Respiratory/Chest: normal breath sounds, no respiratory distress, no accessory muscle use Cardiovascular: regular rate, rhythm, no murmur Abdomen / GI: normal bowel sounds, non tender, soft Extremities: no calf tenderness, no pedal edema Neurologic/Psychiatric: alert, normal mood/affect, oriented x 3 Skin: normal color, warm/dry, no rash Lymphatic: no adenopathy (Cristy Melgar MD) Hospital Course This is a 76 yo m that presented to the ED with an elevated bp, headache and chest pain. He was admitted for the evaluation of chest pain and bp management 1. As troponin initial and repeat were negative a stress echo was done 2. Stress echo was WNL 3. Amlodipine was increased to 10 mg daily 4. Losartan was increased to 50 mg daily 5. Results were requested to be printed for patient as he is not from [place] Total Time Spent: Less than 30 minutes This includes examination of the patient, discharge planning, medication reconciliation, and communication with other providers. (Cristy Melgar MD) Resident Physician Supervision Note: I interviewed and examined the patient. Discussed with Dr. Melgar and agree with findings and plan as documented in the note. Any exceptions or clarifications are listed here: None Documented By: Atul Quinonez feeling better. BP improving. no other new complaints. extensive discussions , answered all questions to the best of my ability. saw in [place] w dr melgar who led discussion w family vitals noted, see EMR. no focal neuro deficits. breathing unlabored hypertensive urgency - manifest by headache. fortunately no cardiac ischemia, neg enzymes neg stress. no stroke like sx. recovered totally. increase BP regimen, discussed ambulatory monitoring. stable for home. otherwise as per R2 above Total Time Spent: Greater than 30 minutes (Atul Quinonez D.O.) Discharge Instructions Please refer to the electronic Patient Visit Report (Discharge Instructions) for additional information. (Cristy Melgar MD) Additional Copies To Atul Quinonez D.O.
--- NOTE | 2016-06-29 18:06 | DOBUTAMINE ECHO ---
*NOTICE TO RECEIVING [employer] This information is strictly Confidential and protected under [place] law. [place] law prohibits you from making any further disclosure of this information unless further disclosure is expressly permitted by the written consent of the person to whom it pertains or is authorized by law. A general authorization for the release of medical or other information is not sufficient for this purpose. Hospital accepts no responsibility if the information is made available to any other person, INCLUDING THE PATIENT. Interpretation Summary * Conclusions -- * Stress Echo: * 1. Negative Dobutamine stress echo for ischemia at 88% MPHR. * 2. Negative Dobutamine stress ECG for ischemia at 88% MPHR. * 3. No chest pain reported. * 4. No arrhythmia. Rare PVC. * 5. Appropriate blood pressure response. * 6. Technically difficult study, enhanced with IV Definity. Procedure Details * DOBUTAMINE ECHO, CPT#56094 * A contrast injection of Definity was performed to improve assessment of LV function. * Contrast was injected into an intravenous site in the left arm. * One vial of Definity ultrasound contrast was diluted in normal saline to a total volume of 10 ml. A total of '5' ml of solution was administered during imaging. * Lot # [id number] of Definity utilized for procedure. * Expiration date 1APR18. * The attending nurse who injected the contrast agent was Demetris Valencia RN. Left Ventricle * The left ventricle is normal in size. * Left ventricular systolic function is normal. * Resting wall motion: Normal. Stress wall motion: Appropriate increase in Left ventricular systolic function and decrease in cavity size. No stress induced segmental wall motion abnormalities. * The left ventricular ejection fraction increases normally with stress. The left ventricular end-systolic cavity size reduces post-stress (normal response). The left ventricular wall motion with stress is normal. Stress Parameters * Sinus bradycardia at 50 bpm. Possible septal infarct. * The stress ECG response was normal * No arrhythmia were noted with stress. * The stress portion of this study was personally supervised by the undersigned interpreting physician. * Rest heart rate was '50' BPM. * Rest blood pressure was '149/72' * Maximum heart rate achieved was 126 bpm. * Maximum heart rate was 88 % of maximum age-predicted heart rate. * Maximum blood pressure was '167/62' * Maximum Dobutamine infusion rate was '50' mcg/kg/min. * A total of 1.5 mg of intravenous Atropine was used to supplement Dobutamine for heart rate response. * Dobutamine infusion was terminated due to achieving target heart rate * A total of 10 mg of IV Metoprolol was administered to reverse Dobutamine-induced tachycardia.
--- NOTE | 2016-06-29 18:16 | ECHOCARDIOGRAM REPORT ---
*NOTICE TO RECEIVING [employer]ENCY This information is strictly Confidential and protected under [place] law. [place] law prohibits you from making any further disclosure of this information unless further disclosure is expressly permitted by the written consent of the person to whom it pertains or is authorized by law. A general authorization for the release of medical or other information is not sufficient for this purpose. Hospital accepts no responsibility if the information is made available to any other person, INCLUDING THE PATIENT. Interpretation Summary * Name: DINORAH THURMAN Study Date: 06/29/2016 06:58 AM BP: 167/81 mmHg * Patient Location: .EDB6 HR: 57 * : 1940 (M/d/yyyy) Gender: Male Height: 68 in * Age: 76 yrs Ethnicity: CA Weight: 204 lb * Ordering Physician: Korina Pacheco * Referring Physician: Self, Referred * Performed By: Kerrie Jeffers RCS * * Reason For Study: Chest Pain * BSA: 2.1 m2 * -- Conclusions -- * 1. Normal LV size. Borderline LV wall thickness. * 2. Normal LV systolic function. LVEF 60-65%. * 3. Borderline RV enlargement. Normal RV function. * 4. No significant valvular pathology. * 5. Grade I diastolic dysfunction. * 6. Moderate biatrial enlargement. * 7. Normal estimated PA and RA pressures. Procedure Details * A complete two-dimensional transthoracic echocardiogram was performed (2D, M-mode, Doppler and color flow Doppler). Left Ventricle * There is borderline concentric left ventricular hypertrophy. * Ejection Fraction = 60-65%. Right Ventricle * The right ventricle is not well visualized. * Borderline right ventricular enlargement. * The right ventricular systolic function is normal as assessed by tricuspid annular plane systolic excursion (TAPSE) (normal >1.5 cm). Atria * The left atrium is moderately dilated. * The right atrium is moderately dilated. * No ASD detected; PFO is not assessed. Mitral Valve * There is mild mitral annular calcification. * There is no mitral valve stenosis. * There is trace mitral regurgitation. Tricuspid Valve * The tricuspid valve is not well visualized. * There is trace tricuspid regurgitation. Pulmonic Valve * The pulmonary valve is not well seen, but the Doppler examination is normal without significant regurgitation or stenosis. Great Vessels * The aortic root and proximal ascending aorta are normal sized. * No Doppler or imaging evidence of an aortic coarctation. Pericardium/Pleural * There is no pericardial effusion. Great Vessels * Normal inferior vena cava size and collapsability with sniff indicates a normal right atrial pressure of 3 mmHg Left Ventricular Diastolic Function * Grade I diastolic dysfunction, (abnormal relaxation pattern). MMode 2D Measurements and Calculations IVSd 1.1 cm IVSs 1.5 cm LVIDd 5.4 cm LVIDs 3.5 cm LVPWd 1.1 cm LVPWs 1.5 cm IVS/LVPW 0.98 FS 35.3 % EDV(Teich) 139.0 ml ESV(Teich) 49.8 ml EF(Teich) 64.2 % EDV(cubed) 154.2 ml ESV(cubed) 41.7 ml EF(cubed) 72.9 % % IVS thick 32.7 % % LVPW thick 31.5 % LV mass(C)d 234.0 grams LV mass(C)dI 113.5 grams/m\S\2 LV mass(C)s 183.2 grams LV mass(C)sI 88.9 grams/m\S\2 CO(Teich) 4.2 l/min CI(Teich) 2.0 l/min/m\S\2 SV(Teich) 89.3 ml SI(Teich) 43.3 ml/m\S\2 CO(cubed) 5.3 l/min CI(cubed) 2.6 l/min/m\S\2 SV(cubed) 112.4 ml SI(cubed) 54.5 ml/m\S\2 Ao root diam 3.5 cm Ao root area 9.4 cm\S\2 ACS 1.6 cm LA dimension 5.3 cm LA/Ao 1.5 LVAd ap4 37.1 cm\S\2 LVLd ap4 9.0 cm EDV(MOD-sp4) 127.0 ml LVAs ap4 18.1 cm\S\2 LVLs ap4 7.0 cm ESV(MOD-sp4) 42.0 ml EF(MOD-sp4) 66.9 % LVAd ap2 36.8 cm\S\2 LVLd ap2 9.0 cm EDV(MOD-sp2) 126.0 ml LVAs ap2 19.7 cm\S\2 LVLs ap2 7.2 cm ESV(MOD-sp2) 45.0 ml EF(MOD-sp2) 64.3 % CO(MOD-sp4) 4.0 l/min CI(MOD-sp4) 1.9 l/min/m\S\2 SV(MOD-sp4) 85.0 ml SI(MOD-sp4) 41.2 ml/m\S\2 CO(MOD-sp2) 3.8 l/min CI(MOD-sp2) 1.8 l/min/m\S\2 SV(MOD-sp2) 81.0 ml SI(MOD-sp2) 39.3 ml/m\S\2 Doppler Measurements and Calculations MV E max mary ellen 56.9 cm/sec MV A max mary ellen 70.3 cm/sec MV E/A 0.81 MV P1/2t max mary ellen 72.4 cm/sec MV P1/2t 112.1 msec MVA(P1/2t) 2.0 cm\S\2 MV dec slope 189.2 cm/sec\S\2 MV dec time 0.29 sec Ao V2 max 93.9 cm/sec Ao max PG 3.5 mmHg Ao max PG (full) 0.38 mmHg LV V1 max PG 3.1 mmHg LV V1 max 88.7 cm/sec PA V2 max 133.3 cm/sec PA max PG 7.1 mmHg TR max mary ellen 224.9 cm/sec
[2016-06-29] MEDS ORDERED: LOSARTAN POTASSIUM 25 MG TAB PO SCH (21:00)
[2016-06-29] MEDS ORDERED: LOSARTAN POTASSIUM 50 MG TAB PO SCH (21:00)
[2016-06-30] MEDS ORDERED: AMLODIPINE BESYLATE 5 MG TAB PO SCH (09:00)
[2016-07-03 18:34] LABS: NORMETANEPHRINE PLASMA 54 pg/mL (<=148); TOTAL METANEPHRINE PLASMA 54 pg/mL (<=205)
== END 2016-06-29 15:59 | disposition home or self-care (01) | DRG 305 ==
LOC: ENRESERVDT → ENRESERVTM → C.EDB 23:02 → C.EDINP 06-29 03:22 → EDBEDREQ 06-29 05:05 → C.2T 06-29 11:39
PROVIDERS: ADMIT Hospitalist; ATTEND Family Medicine
DX: I16.0 Hypertensive urgency (principal); I10 Essential (primary) hypertension; I48.0 Paroxysmal atrial fibrillation; F41.9 Anxiety disorder, unspecified; Z87.891 Personal history of nicotine dependence; G25.81 Restless legs syndrome; I87.2 Venous insufficiency (chronic) (peripheral); Z98.1 Arthrodesis status